=== PATIENT | male | born 1950 | race Caucasian/White ===

== ENCOUNTER 2022-08-14 16:42 | Inpatient (IN) | payer MEDICARE, SELFPAY ==
[2022-08-14 16:47] VITALS: BP 145/73; PULSE 60; RESP 16; TEMP 36.6; O2SAT 96; BMI 34.2
[2022-08-14 17:56] LABS: Bedside Glucose 199 mg/dL (74-106)
[2022-08-14] MEDS: Doxycycline 100 MG CAPSULE PO (18:49)
[2022-08-14] MEDS: Carvedilol 25 MG Tablet PO (18:49)
[2022-08-14] MEDS: Gabapentin 300 MG Capsule PO (18:49)
[2022-08-14] MEDS: Glimepiride 2 MG Tablet PO (18:49)
[2022-08-14] MEDS: Insulin NPH Human 100 UNITS/ML PEN 25 UNITS SC (18:50)
--- NOTE | 2022-08-14 19:02 | HP.PCM_ITS ---
HPI - General General Date of Admission: 08/14/22 Date of Service: 08/17/22 Chief Complaint: Here for rehab. HPI Narrative RONAK CÁRDENAS, is a 72 Male who presents with following. 08/07/2022 Pacemaker implantation for complete heart block. 08/09/2022 Admit to [facility]. 08/09/2022 Intubated for shortness of breath, acute respiratory failure with hypoxia, pulmonary edema. Started on Heparin for presumptive DVT. Empiric antibiotics for sepsis/pneumonia. Cardiology consult for elevated troponin. 08/10/2022 Extubated. 08/13/2022 Echo EF dropped from 44% to 34%. Bumex 2mg IV twice daily for acute systolic congestive heart failure. Doxycycline for H. Flu bronchitis. Sepsis ruled out. Elevated troponin managed medically. Coreg 25mg bid, Hydralazine, Amlodipine for hypertensive emergency. Acute kidney injury creatinine improved from 2.16 to 1.79, baseline 1 to 1.7. PT/OT for residential facility. 08/14/2022 Admit to TCU with debility, here for rehabilitation, strengthening, prior to discharge home with . [facility] Medical History (Updated 08/14/22 @ 19:[address] Nirav Kinsey MD) Acute bronchitis due to Hemophilus influenzae Acute kidney injury Acute respiratory failure with hypoxia Acute systolic (congestive) heart failure Carotid artery stenosis Complete heart block Coronary artery disease Debility Diabetes mellitus Fluid overload History of pacemaker Hyperlipidemia Hypertension Peripheral arterial occlusive disease Stroke Home Medications acetaminophen 650 mg tablet,extended release 1,300 mg PO Q8H FEVER/PAIN 08/14/22 [History Last Taken Unknown] amlodipine 10 mg tablet 10 mg PO DAILY BP 08/14/22 [History Last Taken Unknown] ascorbic acid (vitamin C) 1,000 mg capsule 1 g PO DAILY SUPPLEMENT 08/14/22 [History Last Taken Unknown] aspirin 81 mg tablet 81 mg PO DAILY HEART HEALTH 08/14/22 [History Last Taken Unknown] atorvastatin 40 mg tablet 40 mg PO DAILY CHOLESTEROL 08/14/22 [History Last Taken Unknown] bumetanide 1 mg tablet 1 mg PO DAILY Check with primary doctor 08/14/22 [History Last Taken Unknown] carvedilol 25 mg tablet 25 mg PO BID BP 08/14/22 [History Last Taken Unknown] cinnamon bark 500 mg capsule (Cinnamon) 2,000 mg PO DAILY SUPPLEMENT 08/14/22 [History Last Taken Unknown] clopidogrel 75 mg tablet 75 mg PO DAILY BLOOD THINNER 08/14/22 [History Last Taken Unknown] doxycycline hyclate 100 mg capsule 100 mg PO BID PRN ATB 08/14/22 [History Last Taken Unknown] empagliflozin 10 mg tablet (Jardiance) 10 mg PO DAILY DIABETES 08/14/22 [History Last Taken Unknown] gabapentin 300 mg tablet 300 mg PO TID NERVE PAIN 08/14/22 [History Last Taken Unknown] glimepiride 2 mg tablet 2 mg PO BID DIABETES 08/14/22 [History Last Taken Unknown] hydralazine 100 mg tablet 100 mg PO TID BP 08/14/22 [History Last Taken Unknown] insulin NPH isoph U-100 human 100 unit/mL (3 mL) subcutaneous pen (Humulin N NPH U-100 Insulin KwikPen) 25 unit subcut BID DIABETES 08/14/22 [History Last Taken Unknown] lactobacillus combo no.11 15 billion cell sprinkle capsule 1 cap PO DAILY PROBIOTIC 08/14/22 [History Last Taken Unknown] ipjekelc-ocm-ookyj 200 mcg-lycop 175 mcg-lutei 250 mcg-herb 178 tablet 1 tab PO DAILY VITAMIN 08/14/22 [History Last Taken Unknown] omega 5-jnk-twa-fish oil 300 mg-1,000 mg capsule (Fish Oil) 2 cap PO DAILY SUPPLEMENT 08/14/22 [History Last Taken Unknown] omeprazole 20 mg capsule,delayed release 20 mg PO DAILY REFLUX 08/14/22 [History Last Taken Unknown] Allergy/AdvReac Type Severity Reaction Status Date / Time Iodinated Contrast Media Allergy Hives Verified 08/14/22 17:24 azithromycin AdvReac Nausea Verified 08/14/22 17:24 cilostazol AdvReac Chest Verified 08/14/22 17:24 tightness Surgical History (Updated 08/14/22 @ 19:[address] Nirav Kinsey MD) History of appendectomy History of heart artery stent History of toe surgery Social History (Updated 08/14/22 @ 19:[address] Nirav Kinsey MD) household members: spouse Smoking Status: Current every day smoker tobacco type: cigars alcohol intake: never substance use type: does not use ROS Constitutional Constitutional: Denies chills, fever(s) or weight gain ENT HEENT: Denies headache(s), nasal congestion or nasal discharge Cardiovascular Cardiovascular: Denies chest pain or palpitations Respiratory/Chest Respiratory/Chest: Denies cough, excessive phlegm production or shortness of breath with exertion Gastrointestinal Gastrointestinal: Denies abdominal pain, nausea or vomiting Genitourinary Genitourinary: Denies dysuria Musculoskeletal Musculoskeletal: Denies joint pain or joint swelling Integumentary Integumentary: Denies rash or wounds Neurologic Neurologic: Denies focal weakness, numbness or tingling Psychiatric Psychiatric: Denies anxiety, auditory hallucinations, depression, homicidal i deation or suicidal ideation Vital Signs Vital Signs Vital Signs: 08/14/22 16:47 Temperature 97.9 F Temperature Source Temporal Pulse Rate 60 Respiratory Rate 16 Blood Pressure 145/73 H Blood Pressure Mean 97 Blood Pressure Source Monitor Blood Pressure Position Sitting Blood Pressure Location Right Arm Pulse Ox 96 Oxygen Delivery Method Room Air Weight Weight: 117.934 kg Body Mass Index (BMI) 34.2 Physical Exam Const alert General Appearance: cooperative HEENT normocephalic Eyes PERRL and EOMs intact bilaterally Neck supple, no JVD and no carotid bruits Resp normal respiratory effort, normal air movement and clear to auscultation bilaterally Cardio regular rate and regular rhythm GI normal to inspection, nondistended, normoactive bowel sounds, non-tender and non-distended Extremity normal capillary refill General Extremity: Negative for edema Skin no rashes or lesions noted General Skin Exam: no breakdown Psych affect normal Appearance: appropriate Results Lab / Micro Data Result Diagrams: 08/15/22 07:02 08/17/22 05:25 Labs: Laboratory Results - last 24 hr 08/14/22 17:38: POC Glucose 199 H Micro: Microbiology 08/14/22 17:35 Nasal Secretion SARS-CoV-2 Antigen (Rapid) - Final Assessment & Plan Assessment/Plan (1) Debility: (2) Acute respiratory failure with hypoxia: (3) Acute kidney injury: (4) Fluid overload: (5) Acute systolic (congestive) heart failure: (6) Acute bronchitis due to Hemophilus influenzae: (7) Coronary artery disease: (8) Diabetes mellitus: (9) Hypertension: (10) Hyperlipidemia: (11) Peripheral arterial occlusive disease: (12) Complete heart block: (13) Stroke: (14) Carotid artery stenosis: PLAN: Plan 72 year old male with below past medical history hospitalized for acute respiratory failure requiring intubation secondary to acute systolic congestive heart failure, Hemophilus influenza bronchitis, complicated by acute kidney injury, admitted to TCU with debility, here for rehabilitation, strengthening, prior to discharge home with . * Debility - PT/OT. * Pain - Tylenol 1000mg q6h prn pain (1-10). * Bowel - senna/colace 1 tablet bid, MOM 30ml daily prn. * Adult immunization - Administer pneumonia vaccine, covid19 vaccine, flu vaccine as appropriate. * DVT prophylaxis - Hold, on dual antiplatelet therapy. * Hypertension - Coreg 25mg bid, Hydralazine 100mg tid, Amlodipine 10mg daily. * Vitamin C deficiency - Vitamin C 1000mg daily. * Coronary Artery Disease - Coreg 25mg bid, Plavix 75mg daily, Aspirin 81mg daily. * Stroke - Plavix 75mg daily, Aspirin 81mg daily. * Hyperlipidemia - Atorvastatin 40mg qhs, Melvin 3 1 gm daily. * Heart failure with reduced ejection fraction (EF 34%), Coreg 25mg bid, Hydralazine 100mg tid, Jardiance 10mg daily, Bumex 1mg daily. * H. Flu bronchitis - Doxycycline 100mg bid thru 08/19/2022, Lactobacillus 1 tablet daily thru 08/19/2022. * Diabetes Mellitus II - Glimepiride 2mg bidcm, NPH 25 units bid, Jardiance 10mg daily. * Diabetic polyneuropathy - Gabapentin 300mg tidcm. * Nutrition - MVI daily. * GERD - Pantoprazole 20mg daily.
[2022-08-14 21:35] VITALS: PULSE 60; RESP 16; O2SAT 94
[2022-08-14 21:36] VITALS: BP 129/67; PULSE 60
[2022-08-14] MEDS: Atorvastatin Calcium 40 MG Tablet PO (21:36)
[2022-08-14] MEDS: Senna/Docusate Sodium 1 Tablet PO (21:36)
[2022-08-14] MEDS: hydrALAZINE 50 MG Tablet 100 MG PO (21:36)
[2022-08-14 22:00] LABS: Bedside Glucose 267 mg/dL (74-106)
[2022-08-15 06:31] LABS: Bedside Glucose 203 mg/dL (74-106)
[2022-08-15] MEDS: Bumetanide 0.5 MG Tablet 1 MG PO (06:37)
[2022-08-15] MEDS: Empagliflozin 10 MG Tablet PO (06:38)
[2022-08-15] MEDS: Doxycycline 100 MG CAPSULE PO ×2 (06:38→17:44)
[2022-08-15] MEDS: Carvedilol 25 MG Tablet PO ×2 (06:38→17:44)
[2022-08-15] MEDS: Omega-3 Acid Ethyl Esters 1 GM Capsule PO (06:38)
[2022-08-15] MEDS: Pantoprazole Sodium 20 MG Tablet PO (06:38)
[2022-08-15] MEDS: amLODIPine 10 MG Tablet PO (06:38)
[2022-08-15 06:39] VITALS: BP 150/60; PULSE 59
[2022-08-15] MEDS: hydrALAZINE 50 MG Tablet 100 MG PO ×3 (06:39→20:12)
[2022-08-15] MEDS: Ascorbic Acid 500 MG Tablet 1000 MG PO (06:39)
[2022-08-15] MEDS: Senna/Docusate Sodium 1 Tablet PO ×2 (06:40→17:44)
[2022-08-15] MEDS: Clopidogrel Bisulfate 75 MG Tablet PO (06:40)
[2022-08-15 06:48] VITALS: RESP 16; TEMP 36.7; O2SAT 95
[2022-08-15 07:13] LABS: Absolute Neutrophil Count 5.1 X10^3/uL (2.0-7.7); Basophil# 0.04 X10^3/uL; Basophil% 0.6 % (0-1); Eosinophils% 5.6 % (0-5); Hemoglobin 9.5 g/dL (13.0-16.5); Lymphocyte % 8.5 % (19-41); Mean Corp Hgb Conc 32.8 g/dL (32-36); Mean Corpuscular Hgb 30.2 pg (27.0-32.0); Mean Corpuscular Volume 92.1 fL (80-94); Mean Platelet Vol. 9.2 fl (6.2-12.0); Monocyte# 0.87 X10^3/uL; Monocyte% 12.3 % (0-10); NRBC Flagged by Analyzer 0 % (0-5); Neutrophil # 5.07 X10^3/uL (2.7-7.7); Neutrophil % 71.6 % (47-70); POSITIVE DIFFERENTIAL YES; Platelet Count 218 K/mm3 (150-450); RBC Distribution Width CV 13.2 % (11.6-14.6); RBC Distribution Width SD 44.1 fl (35.1-43.9); Red Blood Count 3.15 M/mm3 (4.6-6.2); White Blood Count 7.1 K/mm3 (4.4-11.0)
[2022-08-15 07:29] LABS: Differential Indicated SCAN CRITERIA MET
[2022-08-15 07:56] LABS: Anion Gap 8 (5-15); BUN 61 mg/dL (7-18); BUN/Creat Ratio 36.1 RATIO (10-20); Calcium,Total 9.1 mg/dL (8.5-10.1); Chloride 104 mmol/L (98-107); Creatinine, Serum 1.69 mg/dL (0.70-1.30); EST Glomerular Filtration Rate 43 mL/min (>60); Est Glom Filt Rate - Afr Amer 52 mL/min (>60); Estimated Creatinine Clearance 44.65 ml/min; Glucose 223 mg/dL (74-106); Potassium 3.4 mmol/L (3.5-5.1); Sodium Level 138 mmol/L (136-145)
[2022-08-15] MEDS: Gabapentin 300 MG Capsule PO ×3 (08:16→17:43)
[2022-08-15] MEDS: Glimepiride 2 MG Tablet PO ×2 (08:17→17:43)
[2022-08-15] MEDS: Multivitamins,Ther W-Minerals Tablet 1 TABLET PO (08:17)
[2022-08-15] MEDS: Aspirin 81 MG TAB.CHEW PO (08:17)
[2022-08-15] MEDS: Insulin NPH Human 100 UNITS/ML PEN 25 UNITS SC ×2 (08:20→17:45)
[2022-08-15] MEDS: Tuberculin,Purif.prot.deriv. 50 TU/ML Vial 0.1 ML ID (10:51)
[2022-08-15 11:35] LABS: Bedside Glucose 237 mg/dL (74-106)
[2022-08-15] MEDS: Potassium Chloride Oral Tablet 20 MEQ PO (12:44)
[2022-08-15 14:14] VITALS: BP 130/63; PULSE 59
[2022-08-15 16:46] LABS: Bedside Glucose 257 mg/dL (74-106)
[2022-08-15 17:41] VITALS: BP 132/69; PULSE 60
[2022-08-15 20:12] VITALS: BP 149/74; PULSE 60
[2022-08-15] MEDS: Menthol/Lanolin/Calamine/Znox 113 GM Tube 1 APPLIC TOPICAL (20:12)
[2022-08-15] MEDS: Nystatin Powder 15gm Bottle 1 APPLIC TOPICAL (20:12)
[2022-08-15] MEDS: Atorvastatin Calcium 40 MG Tablet PO (20:14)
[2022-08-15 20:17] VITALS: PULSE 60
[2022-08-15 21:45] LABS: Bedside Glucose 217 mg/dL (74-106)
[2022-08-16 05:44] VITALS: BP 136/61; PULSE 60; RESP 18
[2022-08-16 05:53] VITALS: BP 136/61; PULSE 60
[2022-08-16] MEDS: hydrALAZINE 50 MG Tablet 100 MG PO ×3 (05:53→22:29)
[2022-08-16] MEDS: Empagliflozin 10 MG Tablet PO (05:54)
[2022-08-16] MEDS: Bumetanide 0.5 MG Tablet 1 MG PO (05:54)
[2022-08-16] MEDS: Clopidogrel Bisulfate 75 MG Tablet PO (05:54)
[2022-08-16] MEDS: Pantoprazole Sodium 20 MG Tablet PO (05:58)
[2022-08-16] MEDS: Carvedilol 25 MG Tablet PO ×2 (05:58→17:44)
[2022-08-16] MEDS: Doxycycline 100 MG CAPSULE PO ×2 (05:58→17:43)
[2022-08-16] MEDS: Omega-3 Acid Ethyl Esters 1 GM Capsule PO (05:59)
[2022-08-16] MEDS: amLODIPine 10 MG Tablet PO (05:59)
[2022-08-16] MEDS: Menthol/Lanolin/Calamine/Znox 113 GM Tube 1 APPLIC TOPICAL ×2 (06:00→17:43)
[2022-08-16] MEDS: Nystatin Powder 15gm Bottle 1 APPLIC TOPICAL ×2 (06:00→17:44)
[2022-08-16] MEDS: Ascorbic Acid 500 MG Tablet 1000 MG PO (06:04)
[2022-08-16] MEDS: Insulin NPH Human 100 UNITS/ML PEN 25 UNITS SC (06:10)
[2022-08-16 06:31] LABS: Bedside Glucose 220 mg/dL (74-106)
[2022-08-16] MEDS: Multivitamins,Ther W-Minerals Tablet 1 TABLET PO (08:23)
[2022-08-16] MEDS: Aspirin 81 MG TAB.CHEW PO (08:24)
[2022-08-16] MEDS: Potassium Chloride Oral Tablet 20 MEQ PO (08:27)
[2022-08-16] MEDS: Gabapentin 300 MG Capsule PO ×3 (08:27→17:54)
[2022-08-16] MEDS: Glimepiride 2 MG Tablet PO ×2 (08:28→17:43)
[2022-08-16 11:25] LABS: Bedside Glucose 274 mg/dL (74-106)
[2022-08-16 13:37] VITALS: BP 136/61; PULSE 60
[2022-08-16] MEDS: Acetaminophen 500 MG Tablet 1000 MG PO (13:37)
[2022-08-16 17:32] VITALS: BP 143/71; PULSE 60; RESP 15; TEMP 37; O2SAT 94
[2022-08-16 17:45] LABS: Bedside Glucose 280 mg/dL (74-106)
[2022-08-16] MEDS: Insulin Lispro 100 UNIT/ML INSULN.PEN 10 UNIT SC (17:56)
[2022-08-16 21:26] LABS: Bedside Glucose 292 mg/dL (74-106)
[2022-08-16 22:29] VITALS: BP 143/71; PULSE 60
[2022-08-16] MEDS: Atorvastatin Calcium 40 MG Tablet PO (22:29)
[2022-08-16] MEDS: Insulin Glargine-YFGN 100 UNIT/ML Pen 50 UNIT SC (22:29)
[2022-08-17] MEDS: Pantoprazole Sodium 20 MG Tablet PO (06:02)
[2022-08-17] MEDS: Ascorbic Acid 500 MG Tablet 1000 MG PO (06:02)
[2022-08-17] MEDS: Doxycycline 100 MG CAPSULE PO ×2 (06:02→17:45)
[2022-08-17] MEDS: Bumetanide 0.5 MG Tablet 1 MG PO (06:04)
[2022-08-17] MEDS: Clopidogrel Bisulfate 75 MG Tablet PO (06:04)
[2022-08-17 06:05] VITALS: BP 159/69; PULSE 59
[2022-08-17] MEDS: Omega-3 Acid Ethyl Esters 1 GM Capsule PO (06:05)
[2022-08-17] MEDS: Menthol/Lanolin/Calamine/Znox 113 GM Tube 1 APPLIC TOPICAL ×2 (06:05→17:46)
[2022-08-17] MEDS: hydrALAZINE 50 MG Tablet 100 MG PO ×3 (06:05→21:19)
[2022-08-17] MEDS: Nystatin Powder 15gm Bottle 1 APPLIC TOPICAL ×2 (06:06→17:46)
[2022-08-17] MEDS: Empagliflozin 10 MG Tablet PO (06:06)
[2022-08-17] MEDS: amLODIPine 10 MG Tablet PO (06:06)
[2022-08-17 06:07] LABS: Anion Gap 10 (5-15); BUN 67 mg/dL (7-18); BUN/Creat Ratio 42.7 RATIO (10-20); Calcium,Total 8.7 mg/dL (8.5-10.1); Chloride 104 mmol/L (98-107); Creatinine, Serum 1.57 mg/dL (0.70-1.30); EST Glomerular Filtration Rate 46 mL/min (>60); Est Glom Filt Rate - Afr Amer 56 mL/min (>60); Estimated Creatinine Clearance 48.06 ml/min; Glucose 180 mg/dL (74-106); Potassium 3.6 mmol/L (3.5-5.1); Sodium Level 139 mmol/L (136-145)
[2022-08-17 06:40] LABS: Bedside Glucose 198 mg/dL (74-106)
[2022-08-17] MEDS: Insulin Lispro 100 UNIT/ML INSULN.PEN 10 UNIT SC ×3 (08:03→17:43)
[2022-08-17] MEDS: Glimepiride 2 MG Tablet PO ×2 (08:04→17:44)
[2022-08-17] MEDS: Aspirin 81 MG TAB.CHEW PO (08:04)
[2022-08-17] MEDS: Gabapentin 300 MG Capsule PO ×3 (08:04→17:44)
[2022-08-17] MEDS: Potassium Chloride Oral Tablet 20 MEQ PO (08:05)
[2022-08-17] MEDS: Multivitamins,Ther W-Minerals Tablet 1 TABLET PO (08:05)
[2022-08-17] MEDS: Carvedilol 25 MG Tablet PO ×2 (08:05→17:44)
--- NOTE | 2022-08-17 11:19 | NURSING ---
Resident educated on the COVID 19 Vaccine and he does not want to receive it.
--- NOTE | 2022-08-17 11:25 | NURSING ---
Discussed code status with pt and the differences in options. Pt confirms he wants to be a full code. Updated in chart.
--- NOTE | 2022-08-17 11:28 | CASEMGMT ---
Social Work Met with patient to complete initial assessment. Introduced self and role. Verified contacts. Discussed code status and MOLST form. Pt confirmed full code. MOLST placed in Dr. ray. Pt has advanced directives, and agreed to tell son to bring in a copy. Educated to [facility] insurance with [employer] 08/17 and continued stay is not guaranteed with each review. Pts goal is to return home alone at [facility]. pt does live in son's house in[address]. Son and DIL both work handle attacher. SW to continue to follow. Tosin Valiente, CLIENT EXPERIENCE CONSULTANT TEXTILE PIN WORKER
[2022-08-17 11:45] LABS: Bedside Glucose 197 mg/dL (74-106)
--- NOTE | 2022-08-17 11:58 | NURSING ---
Environmental Engineering Aide Note; Activity Asset: Complete
[2022-08-17 12:52] VITALS: BP 129/69; PULSE 61
--- NOTE | 2022-08-17 14:44 | PHA.CONS_ITS ---
TCU RX Drug Regimen Review Subjective: TCU Admission. 72 YOM presented for pacemaker implantation, then 2 days later was hospitalized for acute respiratory failure requiring intubation secondary to acute systolic congestive heart failure, Heamophilus influenza bronchitis, complicated by acute kidney injury. Admitted to TCU with debility for strengthening and rehabilitation. Objective: Allergies Iodinated Contrast Media Allergy (Verified 08/14/22 17:24) Hives azithromycin Adverse Reaction (Verified 08/14/22 17:24) Nausea cilostazol Adverse Reaction (Verified 08/14/22 17:24) Chest tightness Current Medications Generic Name Dose Route Start Last Admin Trade Name Freq PRN Reason Stop Dose Admin Acetaminophen 1,000 mg 08/14/22 18:25 08/16/22 13:37 Acetaminophen 500 Mg Tablet PO 1,000 mg Q6H PRN PRN Administration Pain 1-10 or Fever Amlodipine Besylate 10 mg 08/15/22 06:00 08/17/22 06:06 Amlodipine 10 Mg Tablet PO 10 mg DAILY YASIR Administration Ascorbic Acid 1,000 mg 08/15/22 06:00 08/17/22 06:02 Ascorbic Acid 500 Mg Tablet PO 1,000 mg DAILY YASIR Administration Aspirin 81 mg 08/15/22 08:00 08/17/22 08:04 Aspirin 81 Mg Tab.Chew PO 81 mg BREAKFAST YASIR Administration Atorvastatin Calcium 40 mg 08/14/22 22:00 08/16/22 22:29 Atorvastatin Calcium 40 Mg Tablet PO 40 mg QHS YASIR Administration Bumetanide 1 mg 08/15/22 06:00 08/17/22 06:04 Bumetanide 0.5 Mg Tablet PO 1 mg DAILY YASIR Administration Calamine/Phenol 1 applic 08/15/22 06:00 08/17/22 06:05 Menthol/Lanolin/Calamine/Znox 113 Gm Tube TOPICAL 1 applic BID YASIR Administration Protocol Carvedilol 25 mg 08/17/22 08:00 08/17/22 08:05 Carvedilol 25 Mg Tablet PO 25 mg BIDCM YASIR Administration Clopidogrel Bisulfate 75 mg 08/15/22 06:00 08/17/22 06:04 Clopidogrel Bisulfate 75 Mg Tablet PO 75 mg DAILY YASIR Administration Doxycycline Monohydrate 100 mg 08/14/22 18:00 08/17/22 06:02 Doxycycline 100 Mg Capsule PO 08/19/22 18:01 100 mg BID YASIR Administration Empagliflozin 10 mg 08/15/22 06:00 08/17/22 06:06 Empagliflozin 10 Mg Tablet PO 10 mg DAILY YASIR Administration Gabapentin 300 mg 08/14/22 17:45 08/17/22 12:52 Gabapentin 300 Mg Capsule PO 300 mg TIDCM YASIR Administration Glimepiride 2 mg 08/14/22 18:00 08/17/22 08:04 Glimepiride 2 Mg Tablet PO 2 mg BIDCM YASIR Administration Hydralazine HCl 100 mg 08/14/22 22:00 08/17/22 12:52 Hydralazine 50 Mg Tablet PO 100 mg TID YASIR Administration Insulin Glargine 50 unit 08/16/22 22:00 08/16/22 22:29 Insulin Glargine-Yfgn 100 Unit/Ml Pen SC 50 unit QHS YASIR Administration Insulin Human Lispro 10 unit 08/16/22 16:45 08/17/22 12:50 Insulin Lispro 100 Unit/Ml Insuln.Pen SC 10 units TIDAC YASIR Administration Lactobacillus Acidophilus 1 tablet 08/15/22 06:00 08/17/22 06:04 Lactobacillus Acidophilus PO 08/19/22 23:59 1 tablet DAILY YASIR Administration Magnesium Hydroxide 30 ml 08/14/22 19:20 Magnesium Hydroxide 30 Ml Udc PO DAILY PRN Constipation Multivitamins/Minerals 1 tablet 08/15/22 08:00 08/17/22 08:05 Multivitamins,Ther W-Minerals Tablet PO 1 tablet BREAKFAST YASIR Administration Nystatin 1 applic 08/15/22 06:00 08/17/22 06:06 Nystatin Powder 15gm Bottle TOPICAL 1 applic BID YASIR Administration Protocol [id number] Ethyl Esters 1 gm 08/15/22 06:00 08/17/22 06:05 [place]-3 Acid Ethyl Esters 1 Gm Capsule PO 1 gm DAILY YASIR Administration Pantoprazole Sodium 20 mg 08/15/22 06:00 08/17/22 06:02 Pantoprazole Sodium 20 Mg Tablet PO 20 mg DAILY YASIR Administration Potassium Chloride 20 meq 08/16/22 08:00 08/17/22 08:05 Potassium Chloride Oral Tablet 20 Meq PO 20 meq DAILYCM YASIR Administration Senna/Docusate Sodium 1 tablet 08/14/22 19:30 08/17/22 06:03 Senna/Docusate Sodium 1 Tablet PO Not Given BID [facility] Sodium Chloride 10 - 40 ml 08/14/22 16:50 0.9% Saline Lock 10 Ml Syringe IV UD PRN SALINE FLUSH Tuberculin PPD 0.1 ml 08/22/22 10:00 Tuberculin,Purif.Prot.Deriv. 50 Tu/Ml Vial ID 08/22/22 10:01 X1 ONE Problem List (Last Updated 08/14/22 @ 19:[address] Nirav Kinsey MD) Debility (Acute) Stroke (Acute) Carotid artery stenosis (Acute) Peripheral arterial occlusive disease (Acute) Hyperlipidemia (Acute) Hypertension (Chronic) Diabetes mellitus (Acute) Complete heart block (Acute) Coronary artery disease (Acute) Acute bronchitis due to Hemophilus influenzae (Acute) Acute systolic (congestive) heart failure (Acute) Fluid overload (Acute) Acute kidney injury (Acute) Acute respiratory failure with hypoxia (Acute) Vital Signs Temp Pulse Resp BP Pulse Ox O2 Del Method 98.6 F 61 15 129/69 H 94 Room Air 08/16/22 17:32 08/17/22 12:52 08/16/22 17:32 08/17/22 12:52 08/16/22 17:32 08/17/22 09:31 Oxygen Delivery Method Room Air Weight: 117.934 kg Body Mass Index (BMI) 34.2 Sodium 139 mmol/L (136-145) 08/17/22 05:25 Potassium 3.6 mmol/L (3.5-5.1) 08/17/22 05:25 Chloride 104 mmol/L (98-107) 08/17/22 05:25 Carbon Dioxide 25.0 mmol/L (21.0-32.0) 08/17/22 05:25 Anion Gap 10 (5-15) 08/17/22 05:25 BUN 67 mg/dL (7-18) H 08/17/22 05:25 Creatinine 1.57 mg/dL (0.70-1.30) H 08/17/22 05:25 Est GFR (MDRD) Af Amer 56 mL/min (>60) L 08/17/22 05:25 Est GFR (MDRD) Non-Af 46 mL/min (>60) L 08/17/22 05:25 BUN/Creatinine Ratio 42.7 RATIO (10-20) H 08/17/22 05:25 Glucose 180 mg/dL (74-106) H 08/17/22 05:25 Assessment/Plan: 1. Pain: acetaminophen?1000 mg?PO Q6H PRN pain score (1-10). Last dose 08/16/22 for a headache, pain score 4/10. Please continue to?monitor?increased pain and PRN use.?? 2. Bowel: senna/docusate 1 tablet PO BID and MOM 30 mL PO daily PRN constipation.?Patient has refused 3/6 scheduled doses of senna/docusate and no documentation of PRN use. Please consider changing senna/docusate to PRN c onstipation. Thanks. Last documented bowel movement 08/17/2022. Please continue?to?monitor?for constipation and PRN use.?? 3. H. Flu bronchitis: doxycycline?100 mg?PO BID through 08/19/22 and lactoba cillus 1 tablet daily through 08/19/2022.?Please continue to?monitor?for diarrhea and S/S of infection.? 4. Stroke: clopidogrel 75 mg PO daily and aspirin?81 mg?PO daily. Please continue to?monitor?hemoglobin (9.5 g/dL), platelets (218 K/mm3), LFT, and signs/symptoms of a blood clot/bleed.??? 5. CAD/Hypertension/Hyperlipidemia/CHF:?carvedilol?25 mg?PO BID, hydralazine?100 mg?PO TID, empagliflozin 10mg Po daily, bumetanide 1mg PO daily, amlodipine?10 mg?PO daily, clopidogrel 75 mg PO daily, aspirin?81 mg?PO daily, atorvastatin?40 mg?PO QHS, and omega 3?1-gram?PO daily. Resident does not have a lipid panel or LFT's on file. Please consider ordering lipid panel and LFTs if clinically appropriate. Thanks.?Please continue to?monitor?BP (last 129/69 mmHg), HR (61 bpm), ejection fraction (last echo?08/13 at 34%), potassium (last 3.6mmol/L), sodium (last 139mmol/L), swelling of extremities, S/S of bleeding, hemoglobin,?renal function, and muscle pain. 6. Diabetes Mellitus II: glimepiride 2 mg PO BID with meals,?insulin glargine?50-units?SubQ?QHS,?insulin lispro 10 units?SubQ?TIDAC,?and Jardiance?10 mg?PO daily.?Please continue to?monitor?blood glucose (last 197mg/dL), renal function, weight,?GI side effects and S/S of hyper/hypoglycemia. Glimepiride is a BEERS criteria agent for hypoglycemia. There is no hemoglobin A1c on file. Please consider ordering one now and then every 3 months if clinically appropriate. Thanks.? 7. GERD: pantoprazole?20 mg?PO daily.?Please continue to monitor LFT, magnesium?(no documented history), diarrhea (BEERS for increased risk of C. diff infections) and symptoms of acid?reflux.?? 8. Hypokalemia/vitamin C deficiency/nutrition:?potassium chloride 20?mEq PO daily with meals, vitamin C?1000mg?daily and multivitamin with minerals 1T PO daily.?Please continue to?monitor?potassium (last 3.6 mmol/L).? Assessment/Plan for indications treated with psychotropic medications: 1. Diabetic polyneuropathy: gabapentin?300mg?PO TID with meals. Please continue to?monitor?for?S/S?of confusion, renal function?(BEERS medication, dose appropriately for renal function), falls/fractures (BEERS). GDR?not?appropriate due?to?use?for neuropathy. Medical chart and medication regimen reviewed. The following medication irregularities or issues were identified: *1. Senna/docusate 1 tablet PO BID and MOM 30 mL PO daily PRN constipation.?Patient has refused 3/6 scheduled doses of senna/docusate. Please consider changing senna/docusate to PRN constipation. Thanks. *2. Atorvastatin?40 mg?PO QHS and omega 3?1-gram?PO daily. Resident does not have a lipid panel or LFT's on file. Please consider ordering lipid panel and LFTs if clinically appropriate. Thanks. *3. Glimepiride 2 mg PO BID with meals,?insulin glargine?50- units?SubQ?QHS,?insulin lispro 10 units?SubQ?TIDAC,?and Jardiance?10 mg?PO daily. There is no hemoglobin A1c on file. Please consider ordering one now and then every 3 months if clinically appropriate. Thanks.? 72 year old male with below past medical history hospitalized for acute respiratory failure requiring intubation secondary to acute systolic congestive heart failure, Hemophilus influenza bronchitis, complicated by acute kidney injury, admitted to TCU with debility, here for rehabilitation, strengthening, prior to discharge home with . * Debility - PT/OT. * Pain - Tylenol 1000mg q6h prn pain (1-10). * Bowel - senna/colace 1 tablet bid, MOM 30ml daily prn. * Adult immunization - Administer pneumonia vaccine, covid19 vaccine, flu vaccine as appropriate. * DVT prophylaxis - Hold, on dual antiplatelet therapy. * Hypertension - Coreg 25mg bid, Hydralazine 100mg tid, Amlodipine 10mg daily. * Vitamin C deficiency - Vitamin C 1000mg daily. * Coronary Artery Disease - Coreg 25mg bid, Plavix 75mg daily, Aspirin 81mg daily. * Stroke - Plavix 75mg daily, Aspirin 81mg daily. * Hyperlipidemia - Atorvastatin 40mg qhs, [place] 3 1 gm daily. * Heart failure with reduced ejection fraction (EF 34%), Coreg 25mg bid, Hydralazine 100mg tid, Jardiance 10mg daily, Bumex 1mg daily. * H. Flu bronchitis - Doxycycline 100mg bid thru 08/19/2022, Lactobacillus 1 tablet daily thru 08/19/2022. * Diabetes Mellitus II - Glimepiride 2mg bidcm, NPH 25 units bid, Jardiance 10mg daily. * Diabetic polyneuropathy - Gabapentin 300mg tidcm. * Nutrition - MVI daily. * GERD - Pantoprazole 20mg daily. Date of Note:: 08/17/22
[2022-08-17 21:19] VITALS: BP 145/72; PULSE 60
[2022-08-17] MEDS: Atorvastatin Calcium 40 MG Tablet PO (21:20)
[2022-08-17] MEDS: Insulin Glargine-YFGN 100 UNIT/ML Pen 50 UNIT SC (21:21)
[2022-08-17 21:25] LABS: Bedside Glucose 212 mg/dL (74-106)
[2022-08-17 23:08] VITALS: BP 140/73; PULSE 64; RESP 18; TEMP 37.2; O2SAT 94
[2022-08-18] VITALS (7 sets, daily range): BP systolic 118–138; BP diastolic 64–72; PULSE 60–66; RESP 16–18; TEMP 36.7; O2SAT 90–96
[2022-08-18] MEDS: Clopidogrel Bisulfate 75 MG Tablet PO (05:30)
[2022-08-18] MEDS: Bumetanide 0.5 MG Tablet 1 MG PO (05:30)
[2022-08-18] MEDS: Doxycycline 100 MG CAPSULE PO ×2 (05:30→16:57)
[2022-08-18] MEDS: Senna/Docusate Sodium 1 Tablet PO (05:31)
[2022-08-18] MEDS: Omega-3 Acid Ethyl Esters 1 GM Capsule PO (05:31)
[2022-08-18] MEDS: hydrALAZINE 50 MG Tablet 100 MG PO ×3 (05:31→21:49)
[2022-08-18] MEDS: Pantoprazole Sodium 20 MG Tablet PO (05:31)
[2022-08-18] MEDS: amLODIPine 10 MG Tablet PO (05:31)
[2022-08-18] MEDS: Ascorbic Acid 500 MG Tablet 1000 MG PO (05:31)
[2022-08-18] MEDS: Nystatin Powder 15gm Bottle 1 APPLIC TOPICAL ×2 (05:31→16:58)
[2022-08-18] MEDS: Menthol/Lanolin/Calamine/Znox 113 GM Tube 1 APPLIC TOPICAL ×2 (05:31→16:58)
[2022-08-18 07:36] LABS: Bedside Glucose 162 mg/dL (74-106)
[2022-08-18] MEDS: Gabapentin 300 MG Capsule PO ×3 (08:40→16:59)
[2022-08-18] MEDS: Insulin Lispro 100 UNIT/ML INSULN.PEN 10 UNIT SC ×3 (08:40→17:53)
[2022-08-18] MEDS: Multivitamins,Ther W-Minerals Tablet 1 TABLET PO (08:41)
[2022-08-18] MEDS: Glimepiride 2 MG Tablet PO ×2 (08:41→16:57)
[2022-08-18] MEDS: Carvedilol 25 MG Tablet PO ×2 (08:41→16:57)
[2022-08-18] MEDS: Empagliflozin 10 MG Tablet PO (08:41)
[2022-08-18] MEDS: Aspirin 81 MG TAB.CHEW PO (08:41)
[2022-08-18] MEDS: Potassium Chloride Oral Tablet 20 MEQ PO (08:41)
[2022-08-18 11:40] LABS: Bedside Glucose 139 mg/dL (74-106)
--- NOTE | 2022-08-18 12:38 | CASEMGMT ---
Addendum entered by Tosin Valiente 08/18/22 14:15: Pt received prior FWW in 2017 and is not eligible for a new walker. Updated pt and [employer]. Original Note: Social Work Pt and family requesting discharge 08/19. This worker collaborated with IDT and pt is doing well, but recommending supervision at home with continued therapy. family participated in therapy session today and are comfortable with DC. HEP provided to family. SW spoke with pt and family in room. Confirmed DC 08/19 home with family support. Pt agreeable to [facility] PT/OT/SN. First choice is [facility], whom pt used prior, then [facility]. Pt requesting wide FWW. Referral made to [employer] via [facility]. Family to transport at 1000. Plan: DC home with family support 08/19, [facility] PT/OT/SN, wide FWW Tosin Valiente ,STAFF [employer] OFFICER ONLINE MARKETING MANAGER
[2022-08-18 16:40] LABS: Bedside Glucose 209 mg/dL (74-106)
--- NOTE | 2022-08-18 19:25 | NURSING ---
work release papers signed by dr johnson given to pt for his son and daughter in law
--- NOTE | 2022-08-18 19:27 | PCM.DC.SUM ---
Providers Date of Admission: 08/14/22 Primary Care Physician: Dr. Richard Jones MD Reason For Visit: ACUTE RESP FAILURE Diagnosis Discharge Diagnosis (1) Debility: Status: Acute Code(s): R53.81 - Other malaise (2) Acute respiratory failure with hypoxia: Status: Acute Code(s): J96.01 - Acute respiratory failure with hypoxia (3) Acute kidney injury: Status: Acute Code(s): N17.9 - Acute kidney failure, unspecified (4) Fluid overload: Status: Acute Code(s): E87.70 - Fluid overload, unspecified (5) Acute systolic (congestive) heart failure: Status: Acute Code(s): I50.21 - Acute systolic (congestive) heart failure (6) Acute bronchitis due to Hemophilus influenzae: Status: Acute Code(s): J20.1 - Acute bronchitis due to Hemophilus influenzae (7) Coronary artery disease: Status: Acute Code(s): I25.10 - Atherosclerotic heart disease of [place] coronary artery without angina pectoris (8) Diabetes mellitus: Status: Acute Code(s): E11.9 - Type 2 diabetes mellitus without complications (9) Hypertension: Status: Chronic Code(s): I10 - Essential (primary) hypertension (10) Hyperlipidemia: Status: Acute Code(s): E78.5 - Hyperlipidemia, unspecified (11) Peripheral arterial occlusive disease: Status: Acute Code(s): I77.9 - Disorder of arteries and arterioles, unspecified (12) Complete heart block: Status: Acute Code(s): I44.2 - Atrioventricular block, complete (13) Stroke: Status: Acute Code(s): I63.9 - Cerebral infarction, unspecified (14) Carotid artery stenosis: Status: Acute Code(s): I65.29 - Occlusion and stenosis of unspecified carotid artery Plan 72 year old male with below past medical history hospitalized for acute respiratory failure requiring intubation secondary to acute systolic congestive heart failure, Hemophilus influenza bronchitis, complicated by acute kidney injury, admitted to TCU with debility, here for rehabilitation, strengthening, prior to discharge home with . Debility - PT/OT. Pain - Tylenol 1000mg q6h prn pain (1-10). Bowel - senna/colace 1 tablet bid, MOM 30ml daily prn. Adult immunization - Administer pneumonia vaccine, covid19 vaccine, flu vaccine as appropriate. DVT prophylaxis - Hold, on dual antiplatelet therapy. Hypertension - Coreg 25mg bid, Hydralazine 100mg tid, Amlodipine 10mg daily. Vitamin C deficiency - Vitamin C 1000mg daily. Coronary Artery Disease - Coreg 25mg bid, Plavix 75mg daily, Aspirin 81mg daily. Stroke - Plavix 75mg daily, Aspirin 81mg daily. Hyperlipidemia - Atorvastatin 40mg qhs, [place] 3 1 gm daily. Heart failure with reduced ejection fraction (EF 34%), Coreg 25mg bid, Hydralazine 100mg tid, Jardiance 10mg daily, Bumex 1mg daily. H. Flu bronchitis - Doxycycline 100mg bid thru 08/19/2022, Lactobacillus 1 tablet daily thru 08/19/2022. Diabetes Mellitus II - Glimepiride 2mg bidcm, NPH 25 units bid, Jardiance 10mg daily. Diabetic polyneuropathy - Gabapentin 300mg tidcm. Nutrition - MVI daily. GERD - Pantoprazole 20mg daily. Medications at Discharge Home Medications acetaminophen 650 mg tablet,extended release 1,300 mg PO Q8H FEVER/PAIN 08/14/22 amlodipine 10 mg tablet 10 mg PO DAILY BP 08/14/22 ascorbic acid (vitamin C) 1,000 mg capsule 1 g PO DAILY SUPPLEMENT 08/14/22 aspirin 81 mg tablet 81 mg PO DAILY HEART HEALTH 08/14/22 atorvastatin 40 mg tablet 40 mg PO DAILY CHOLESTEROL 08/14/22 bumetanide 1 mg tablet 1 mg PO DAILY Check with primary doctor 08/14/22 carvedilol 25 mg tablet 25 mg PO BID BP 08/14/22 cinnamon bark 500 mg capsule (Cinnamon) 2,000 mg PO DAILY SUPPLEMENT 08/14/22 clopidogrel 75 mg tablet 75 mg PO DAILY BLOOD THINNER 08/14/22 gabapentin 300 mg tablet 300 mg PO TID NERVE PAIN 08/14/22 glimepiride 2 mg tablet 2 mg PO BID DIABETES 08/14/22 insulin NPH isoph U-100 human 100 unit/mL (3 mL) subcutaneous pen (Humulin N NPH U-100 Insulin KwikPen) 25 unit subcut BID DIABETES 08/14/22 lactobacillus combo no.11 15 billion cell sprinkle capsule 1 cap PO DAILY PROBIOTIC 08/14/22 wuuzyfrt-tuo-yauax 200 mcg-lycop 175 mcg-lutei 250 mcg-herb 178 tablet 1 tab PO DAILY VITAMIN 08/14/22 omega 7-mkx-mjj-fish oil 300 mg-1,000 mg capsule (Fish Oil) 2 cap PO DAILY SUPPLEMENT 08/14/22 omeprazole 20 mg capsule,delayed release 20 mg PO DAILY REFLUX 08/14/22 acetaminophen 500 mg tablet 1,000 mg PO Q6H PRN PRN Pain 1-10 Or Fever #0 tabs 08/18/22 amlodipine 10 mg tablet 10 mg PO DAILY 30 days #30 tabs 08/18/22 bumetanide 0.5 mg tablet 1 mg PO DAILY 30 days #60 tabs 08/18/22 carvedilol 25 mg tablet 25 mg PO BIDCM 30 days #60 tabs 08/18/22 empagliflozin 10 mg tablet (Jardiance) 10 mg PO DAILY@0800 30 days #30 tabs 08/18/22 hydralazine 50 mg tablet 100 mg PO TID 30 days #180 tabs 08/18/22 potassium chloride 20 mEq tablet,extended release(part/cryst) (Klor-Con M) 20 meq PO DAILYCM 30 days #30 tabs 08/18/22 Hospital Course Operations None Procedures None Summary of Care Provided Minutes Spent on Discharge: 35 Hospital Course: 72 year old male with below past medical history hospitalized for acute respiratory failure requiring intubation secondary to acute systolic congestive heart failure, Hemophilus influenza bronchitis, complicated by acute kidney injury, admitted to TCU with debility, here for rehabilitation, strengthening, prior to discharge home with . Discharge home with family support 08/19/2022, [facility] PT/OT/SN, Wide Front Wheeled Walker. Physical Exam Const alert General Appearance: cooperative HEENT normocephalic Eyes PERRL and EOMs intact bilaterally Neck supple, no JVD and no carotid bruits Resp normal respiratory effort, normal air movement and clear to auscultation bilaterally Cardio regular rate and regular rhythm GI normal to inspection, nondistended, normoactive bowel sounds, non-tender and non-distended Extremity normal capillary refill General Extremity: Negative for edema Skin no rashes or lesions noted General Skin Exam: no breakdown Psych affect normal Appearance: appropriate Weight / BMI Weight Weight: 117.934 kg Body Mass Index (BMI) 34.2 ABG / Lab / Microbiology Data Result Diagrams: 08/15/22 07:02 08/17/22 05:25 Laboratory: Laboratory Results - last 24 hr 08/17/22 21:04: POC Glucose 212 H 08/18/22 06:11: POC Glucose 162 H 08/18/22 11:20: POC Glucose 139 H 08/18/22 16:22: POC Glucose 209 H Microbiology: Microbiology 08/18/22 10:50 Nasal Secretion SARS-CoV-2 Antigen (Rapid) - Final 08/16/22 06:06 Nasal Secretion SARS-CoV-2 Antigen (Rapid) - Final 08/14/22 17:35 Nasal Secretion SARS-CoV-2 Antigen (Rapid) - Final D/C Instructions Discharge Diet: No restrictions Discharge Activity: Return to Normal Activity, May Shower and Use Walker Weight Bearing Status: Weight bearing as tolerated Call your doctor if you observe: Fever of 101 or Higher, Inability to urinate, Inability to have a bowel movement, Shortness of breath, Dizziness, Fainting spells, Swelling in the ankles, Chest pain and Uncontrolled pain Additional Instructions: Discharge home with family support 08/19/2022, [facility] Care PT/OT/SN, Wide Front Wheeled Walker. Meaningful Use Info Meaningful Use Diagnoses (Choose all that apply): None applicable Discharge Plan Admission Admit Date/Time: 08/14/22 16:42 Primary Reason for Your Visit: Debility. Attending Provider: Nirav Kinsey Chi Primary Care Provider: Richard Jones Instructions Additional Instructions / Restrictions: Discharge home with family support 08/19/2022, [facility] Care PT/OT/SN, Wide Front Wheeled Walker. Discharge Orders/Prescriptions Prescriptions: New acetaminophen 500 mg Tablet 1,000 mg PO Q6H PRN PRN (Reason: Pain 1-10 Or Fever) Qty: 0 0RF carvedilol 25 mg Tablet 25 mg PO BIDCM 30 Days Qty: 60 0RF amlodipine 10 mg Tablet 10 mg PO DAILY 30 Days Qty: 30 0RF bumetanide 0.5 mg Tablet 1 mg PO DAILY 30 Days Qty: 60 0RF potassium chloride [Klor-Con M20] 20 mEq Tablet,Er Particles/Crystals 20 meq PO DAILYCM 30 Days Qty: 30 0RF hydralazine 50 mg Tablet 100 mg PO TID 30 Days Qty: 180 0RF Jardiance 10 mg Tablet 10 mg PO DAILY@0800 30 Days Qty: 30 0RF Continued atorvastatin 40 mg Tablet 40 mg PO DAILY clopidogrel 75 mg Tablet 75 mg PO DAILY glimepiride 2 mg Tablet 2 mg PO BID omeprazole 20 mg Capsule,Delayed Release(Dr/Ec) 20 mg PO DAILY aspirin 81 mg Tablet 81 mg PO DAILY Humulin N NPH Insulin KwikPen 100 unit/mL (3 mL) Insulin Pen 25 unit SUBCUT BID gabapentin 300 mg Tablet 300 mg PO TID omega 1-rjg-okz-fish oil [Fish Oil] 300-1,000 mg Capsule 2 cap PO DAILY [id number]-kizoh-rqvek-[id number] 200-175-250 mcg Tablet 1 tab PO DAILY lactobacillus combo no.11 15 billion cell Capsule, Sprinkle 1 cap PO DAILY Rx Instructions: do not crush/chew/cut; swallow whole OR may open and sprinkle in cold drink/food ascorbic acid (vitamin C) 1,000 mg Capsule 1 g PO DAILY Discontinued doxycycline hyclate 100 mg Capsule 100 mg PO BID PRN (Reason: ATB) hydralazine 100 mg Tablet 100 mg PO TID Jardiance 10 mg Tablet 10 mg PO DAILY No Action carvedilol 25 mg Tablet 25 mg PO BID Rx Instructions: must administer with a meal/food acetaminophen 650 mg Tablet Extended Release 1,300 mg PO Q8H amlodipine 10 mg Tablet 10 mg PO DAILY bumetanide 1 mg Tablet 1 mg PO DAILY cinnamon bark [Cinnamon] 500 mg Capsule 2,000 mg PO DAILY Referrals / Follow Up: WONG COVARRUBIAS MD [Other] - 10/16/22 10:00 am ([facility] OCTOB[facility] 16 @ 10AM) DEVICE CHECK IN CLINIC W/[facility] [Other] - 11/12/22 1:00 pm JORGE WASHINGTON PA-C [Other] - 12/16/22 10:30 am Richard Jones MD [Primary Care Provider] - Disposition Disposition (needs filled in before D/C Order can be placed): Home Health Service
[2022-08-18 21:26] LABS: Bedside Glucose 220 mg/dL (74-106)
[2022-08-18] MEDS: Atorvastatin Calcium 40 MG Tablet PO (21:49)
[2022-08-18] MEDS: Insulin Glargine-YFGN 100 UNIT/ML Pen 50 UNIT SC (21:50)
[2022-08-19] VITALS (7 sets, daily range): BP systolic 135–148; BP diastolic 69–80; PULSE 60–68; RESP 18–22; TEMP 36.6–37; O2SAT 90–95
--- NOTE | 2022-08-19 00:17 | NURSING ---
Patient asked to be assisted to chair. Stated he felt somewhat SOB. SpO2 88% on RA. O2 2L/min via NC applied. Patient adjusted in bed. Stated he has been unable to fall asleep as well. Will continue to monitor.
[2022-08-19] MEDS: Doxycycline 100 MG CAPSULE PO ×2 (04:52→17:52)
[2022-08-19] MEDS: amLODIPine 10 MG Tablet PO (04:52)
[2022-08-19] MEDS: Bumetanide 0.5 MG Tablet 1 MG PO ×2 (04:52→10:24)
[2022-08-19] MEDS: hydrALAZINE 50 MG Tablet 100 MG PO ×3 (04:52→21:59)
[2022-08-19] MEDS: Omega-3 Acid Ethyl Esters 1 GM Capsule PO (04:52)
[2022-08-19] MEDS: Clopidogrel Bisulfate 75 MG Tablet PO (04:53)
[2022-08-19] MEDS: Pantoprazole Sodium 20 MG Tablet PO (04:53)
[2022-08-19] MEDS: Ascorbic Acid 500 MG Tablet 1000 MG PO (04:53)
[2022-08-19] MEDS: Nystatin Powder 15gm Bottle 1 APPLIC TOPICAL ×2 (04:58→22:08)
[2022-08-19] MEDS: Menthol/Lanolin/Calamine/Znox 113 GM Tube 1 APPLIC TOPICAL ×2 (04:59→22:09)
[2022-08-19 06:35] LABS: Bedside Glucose 145 mg/dL (74-106)
--- NOTE | 2022-08-19 08:15 | NURSING ---
Technical Designer Note; MDS Complete
[2022-08-19] MEDS: Aspirin 81 MG TAB.CHEW PO (08:20)
[2022-08-19] MEDS: Carvedilol 25 MG Tablet PO ×2 (08:20→17:56)
[2022-08-19] MEDS: Empagliflozin 10 MG Tablet PO (08:20)
[2022-08-19] MEDS: Insulin Lispro 100 UNIT/ML INSULN.PEN 10 UNIT SC ×3 (08:20→17:50)
[2022-08-19] MEDS: Potassium Chloride Oral Tablet 20 MEQ PO (08:20)
[2022-08-19] MEDS: Glimepiride 2 MG Tablet PO ×2 (08:21→19:52)
[2022-08-19] MEDS: Multivitamins,Ther W-Minerals Tablet 1 TABLET PO (08:21)
[2022-08-19] MEDS: Gabapentin 300 MG Capsule PO ×3 (08:22→17:51)
--- NOTE | 2022-08-19 08:30 | CASEMGMT ---
Social Work Brief interview for mental status (BIMS) and resident mood interview (PHQ-9) completed on this day. BIMS score . PHQ-9 score . Joo STEPHENSON, RENÉS
--- NOTE | 2022-08-19 08:40 | CASEMGMT ---
Social Work This social media executive sent discharge summary and home health order to [facility] care [facility]. This social media executive confirmed with patient that patient has a front wheeled walker in the home and is aware of how to go about private paying for a wide front wheeled walker. Patient denies any concerns on returning to home. PLAN: Home with home health services and family support. Proposed discharge date: 08/19/2022 per patient request. Joo STEPHENSON, DAWN
--- NOTE | 2022-08-19 09:08 | NURSING ---
pt noted to have SOB with AM care, sat 88-90% on Rm. LT foot edematous, some redness noted to LLE as well. Dr Kinsey updated, new order for CXR, BNP, & doppler LLE. oxygen applied to 2 liters NC. updated son Luis & he will update other brothers.
--- NOTE | 2022-08-19 09:10 | CASEMGMT ---
Social Work Notified by nursing staff that patient is medically declining and will possibly not be able to discharge today. This manager social media to patient room. Patient was to have plan of care meeting today, prior to discharge date being set. This manager social media educating patient that plan would be to have plan of care meeting today at 10:20 in the event that patient is not able to discharge to the community today, patient voiced understanding and plans to contact family to come in for meeting. Will continue to follow. Joo STEPHENSON, DAWN
[2022-08-19 09:57] LABS: BNP,B-Type NATRIURETIC PEPTIDE 600.5 pg/mL (0-100)
--- NOTE | 2022-08-19 10:00 | RAD_ITS ---
HISTORY: SOB. TECHNIQUE: XR Chest 2 Views. COMPARISON: None. FINDINGS: CARDIOMEDIASTINAL BORDERS: Cardiac silhouette within normal limits in size with pacemaker in place. Calcification mild tortuosity of the aorta. LUNGS: Mild interstitial opacities in the mid to lower lungs. Mild focal opacities in the lung bases. PLEURA: Mild bilateral pleural effusions. OSSEOUS STRUCTURES: Old right eighth rib fracture. RAD/Chest PA and Lateral IMPRESSION: Mild pleural effusions with pulmonary edema. Mild bibasilar atelectasis or pneumonia. Electronically Signed: Shaniqua Parks MD at 10:27 EST ,
--- NOTE | 2022-08-19 10:06 | NURSING ---
PT OFF UNIT VIA WC TO XRAY
--- NOTE | 2022-08-19 10:20 | CASEMGMT ---
Social Work Plan of care meeting held. Patient present as well as patient son, Luis. Patient has decided to stay on the Transitional Care Unit due to medical decline and medical recommendations. Patient is now on oxygen and does not where oxygen at home. This director social educating patient and Luis that insurance update is due on 08/25/2022 with on guarantee of continued stay approval. Patient plans to return to home to in-law suite with patient son when patient is medically cleared. Patient continues to be agreeable to home health care when patient is cleared for discharge. Patient to continue with further care and treatment on the Transitional Care Unit. Telephone call to [facility] services, Jailene. This director social educated Jailene that discharge date has been postponed. Jailene confirms to be able to accept patient when discharge date is set. Social Work to continue to follow. Joo Amador MSW, DAWN
--- NOTE | 2022-08-19 11:02 | NURSING ---
Addendum entered by Shayna Nichols 08/19/22 11:08: STREET LIGHT REPAIRER REPORTED SMALL CLOT JUST BELOW KNEE IN GASTROC IN LEFT LEG Original Note: VASCULAR HERE FOR DOPPLER
--- NOTE | 2022-08-19 11:16 | NURSING ---
DR BUTT UPDATED ON CXR, BNP, DOPPLER RESULTS. NEW ORDER TO DC ASPIRIN, START ELIQUIS, INCREASE BUMEX, GET WEIGHT TODAY.
[2022-08-19 11:50] LABS: Bedside Glucose 139 mg/dL (74-106)
--- NOTE | 2022-08-19 13:50 | NURSING ---
Addendum entered by Shayna Nichols 08/19/22 13:54: new order IV lasix 80mg bid, give 80mg now start BID tomorrow. Original Note: dr johnson updated, pt requiring oxygen increase, sat 90% on 2 liters, increased to 4 liters sat 93%. labored breathing with movement.
[2022-08-19] MEDS: Furosemide 100 MG/10 ML Vial 80 MG IV ×2 (14:03→19:52)
[2022-08-19] MEDS: 0.9% Saline Lock 10 ML Syringe IV (14:09)
--- NOTE | 2022-08-19 15:33 | CHAPLAIN ---
Type of Pastoral Visit _x__ Initial Visit ___ Follow-up Visit ___ On-call Visit ___ General Patient Visit ___ Spiritual Assessment ___ Family Conference ___ Bereavement ___ Rapid Response ___ Code Blue ___ Other (describe below) Pastoral Care Referral From _x__ Patient ___ Family ___ Nurse ___ Physician ___ Radiagraph Operator ___ Terminal Worker ___ Other (describe below) Sacrament/Intervention ___ Active listening ___ Anointing ___ Roman Catholic ___ Bereavement ___ Communion ___ Yudy exploration ___ ___ Life review _x__ Prayer ___ Reconciliation ___ Sacrament of Sick _x__ Supportive presence ___ Wedding ___ Other (describe below) Pastoral Comments many family members were in the room at this time; this compliance spec learned later that pt had a change of plans due to new issues; offered support; pt welcomed presence and prayer but was somewhat labored in speaking; this visit was brief; one son did more of the talking and used humor to lighten the situation; prayer and offer of further support was given
[2022-08-19 17:06] LABS: Bedside Glucose 108 mg/dL (74-106)
--- NOTE | 2022-08-19 17:21 | CASEMGMT ---
Social Work This worker notified of pt's decline and postponed DC. Sons present in room. Spoke with pt and son's. Provided support. Offered ongoing support and assistance with DC plans. Educated insurance NRD 08/25 if pt continues to remain in TCU. All parties appreciative of support/check-in. Will continue to follow. Tosin Valiente, RECONCILIATION MANAGER BAND BIAS MACHINE OPERATOR
[2022-08-19] MEDS: APIXABAN 5 MG TABLET 10 MG PO (17:53)
[2022-08-19] MEDS: Ipratropium/Albuterol Sulfate 3 ML AMPUL.NEB INHALATION (19:20)
[2022-08-19] MEDS: Potassium Chloride Oral Tablet 20 MEQ 40 MEQ PO (19:29)
[2022-08-19 22:00] LABS: Bedside Glucose 75 mg/dL (74-106)
[2022-08-19] MEDS: Atorvastatin Calcium 40 MG Tablet PO (22:00)
[2022-08-19 22:23] LABS: Anion Gap 9 (5-15); BUN 73 mg/dL (7-18); BUN/Creat Ratio 41.2 RATIO (10-20); Calcium,Total 9.5 mg/dL (8.5-10.1); Chloride 101 mmol/L (98-107); Creatinine, Serum 1.77 mg/dL (0.70-1.30); EST Glomerular Filtration Rate 40 mL/min (>60); Est Glom Filt Rate - Afr Amer 49 mL/min (>60); Estimated Creatinine Clearance 42.63 ml/min; Glucose 81 mg/dL (74-106); Potassium 3.9 mmol/L (3.5-5.1); Sodium Level 139 mmol/L (136-145)
[2022-08-19 23:30] LABS: Bedside Glucose 92 mg/dL (74-106)
[2022-08-20 05:11] VITALS: BP 116/66; PULSE 61
[2022-08-20] MEDS: Ascorbic Acid 500 MG Tablet 1000 MG PO (05:11)
[2022-08-20] MEDS: hydrALAZINE 50 MG Tablet 100 MG PO ×3 (05:11→22:19)
[2022-08-20] MEDS: APIXABAN 5 MG TABLET 10 MG PO ×2 (05:12→18:05)
[2022-08-20] MEDS: Menthol/Lanolin/Calamine/Znox 113 GM Tube 1 APPLIC TOPICAL ×2 (05:12→18:11)
[2022-08-20] MEDS: Omega-3 Acid Ethyl Esters 1 GM Capsule PO (05:12)
[2022-08-20] MEDS: Pantoprazole Sodium 20 MG Tablet PO (05:12)
[2022-08-20] MEDS: Senna/Docusate Sodium 1 Tablet PO ×2 (05:12→18:05)
[2022-08-20] MEDS: amLODIPine 10 MG Tablet PO (05:12)
[2022-08-20] MEDS: Furosemide 100 MG/10 ML Vial 80 MG IV ×2 (05:12→13:00)
[2022-08-20] MEDS: Clopidogrel Bisulfate 75 MG Tablet PO (05:12)
[2022-08-20] MEDS: Nystatin Powder 15gm Bottle 1 APPLIC TOPICAL ×2 (05:13→18:11)
[2022-08-20] MEDS: 0.9% Saline Lock 10 ML Syringe IV (05:19)
[2022-08-20 06:50] VITALS: PULSE 60; RESP 18; O2SAT 98
[2022-08-20] MEDS: Ipratropium/Albuterol Sulfate 3 ML AMPUL.NEB INHALATION (06:50)
[2022-08-20 07:15] LABS: Bedside Glucose 184 mg/dL (74-106)
[2022-08-20 08:01] LABS: Anion Gap 10 (5-15); BUN 71 mg/dL (7-18); BUN/Creat Ratio 40.3 RATIO (10-20); Calcium,Total 8.8 mg/dL (8.5-10.1); Chloride 100 mmol/L (98-107); Creatinine, Serum 1.76 mg/dL (0.70-1.30); EST Glomerular Filtration Rate 41 mL/min (>60); Est Glom Filt Rate - Afr Amer 49 mL/min (>60); Estimated Creatinine Clearance 42.88 ml/min; Glucose 171 mg/dL (74-106); Potassium 4.1 mmol/L (3.5-5.1); Sodium Level 137 mmol/L (136-145)
[2022-08-20] MEDS: Carvedilol 25 MG Tablet PO ×2 (08:34→18:04)
[2022-08-20] MEDS: Empagliflozin 10 MG Tablet PO (08:35)
[2022-08-20] MEDS: Glimepiride 2 MG Tablet PO ×2 (08:35→18:04)
[2022-08-20] MEDS: Gabapentin 300 MG Capsule PO ×3 (08:35→18:05)
[2022-08-20] MEDS: Multivitamins,Ther W-Minerals Tablet 1 TABLET PO (08:35)
[2022-08-20] MEDS: Potassium Chloride Oral Tablet 20 MEQ PO ×2 (08:35→18:05)
[2022-08-20] MEDS: Acetaminophen 500 MG Tablet 1000 MG PO (08:41)
--- NOTE | 2022-08-20 09:00 | RAD_ITS ---
STUDY: X-RAY CHEST REASON FOR EXAM: Male, 72 years old. possible aspiration TECHNIQUE: Single AP portable view of the chest. COMPARISON: August 19, 2022 FINDINGS: Stable left chest cardiac device and leads. No change in mild patchy infiltrates in the bilateral mid to lower lung costello. The lungs are chronically hyperinflated. There is no demonstrated pleural abnormality. There is mild cardiac enlargement. Normal mediastinum and debo. Normal visualized pulmonary arteries. There is atherosclerotic tortuosity of the aortic arch and descending thoracic aorta. Stable visualized osseous structures. There is no demonstrated abnormality of the visualized soft tissue structures of the upper abdomen. RAD/Chest PA and Lateral IMPRESSION: 1. No change in mild patchy infiltrates in the bilateral mid to lower lung costello. The lungs are chronically hyperinflated. Electronically Signed: Maycol Potter MD at 9:21 EST ,
[2022-08-20] MEDS: levoFLOXacin IV 750 MG/150 ML BAG 100 MG IV (10:41)
[2022-08-20 11:15] LABS: Bedside Glucose 138 mg/dL (74-106)
[2022-08-20] MEDS: Insulin Lispro 100 UNIT/ML INSULN.PEN 10 UNIT SC ×2 (12:44→18:02)
[2022-08-20 13:00] VITALS: PULSE 62
[2022-08-20 13:01] VITALS: BP 116/69; PULSE 62; RESP 18; TEMP 36.4; O2SAT 93
[2022-08-20 17:15] LABS: Bedside Glucose 200 mg/dL (74-106)
[2022-08-20 22:00] VITALS: PULSE 60; RESP 16; O2SAT 96
[2022-08-20] MEDS: Atorvastatin Calcium 40 MG Tablet PO (22:16)
[2022-08-20 22:19] VITALS: BP 171/64; PULSE 60
[2022-08-20] MEDS: Insulin Glargine-YFGN 100 UNIT/ML Pen 50 UNIT SC (22:20)
[2022-08-21] VITALS (11 sets, daily range): BP systolic 130–152; BP diastolic 65–75; PULSE 59–69; RESP 16–18; TEMP 36.6; O2SAT 93–97
[2022-08-21 01:15] LABS: Bedside Glucose 219 mg/dL (74-106)
[2022-08-21 06:21] LABS: Anion Gap 9 (5-15); BUN 75 mg/dL (7-18); BUN/Creat Ratio 36.4 RATIO (10-20); Calcium,Total 8.7 mg/dL (8.5-10.1); Chloride 101 mmol/L (98-107); Creatinine, Serum 2.06 mg/dL (0.70-1.30); EST Glomerular Filtration Rate 34 mL/min (>60); Est Glom Filt Rate - Afr Amer 41 mL/min (>60); Estimated Creatinine Clearance 36.63 ml/min; Glucose 209 mg/dL (74-106); Potassium 3.9 mmol/L (3.5-5.1); Sodium Level 137 mmol/L (136-145)
[2022-08-21 06:51] LABS: Bedside Glucose 193 mg/dL (74-106)
[2022-08-21] MEDS: Pantoprazole Sodium 20 MG Tablet PO (07:02)
[2022-08-21] MEDS: amLODIPine 10 MG Tablet PO (07:02)
[2022-08-21] MEDS: Omega-3 Acid Ethyl Esters 1 GM Capsule PO (07:02)
[2022-08-21] MEDS: hydrALAZINE 50 MG Tablet 100 MG PO ×3 (07:02→21:56)
[2022-08-21] MEDS: Senna/Docusate Sodium 1 Tablet PO ×2 (07:02→18:09)
[2022-08-21] MEDS: Furosemide 100 MG/10 ML Vial 80 MG IV (07:03)
[2022-08-21] MEDS: APIXABAN 5 MG TABLET 10 MG PO ×2 (07:03→18:08)
[2022-08-21] MEDS: Clopidogrel Bisulfate 75 MG Tablet PO (07:03)
[2022-08-21] MEDS: Nystatin Powder 15gm Bottle 1 APPLIC TOPICAL ×2 (07:04→18:09)
[2022-08-21] MEDS: Ascorbic Acid 500 MG Tablet 1000 MG PO (07:04)
[2022-08-21] MEDS: Menthol/Lanolin/Calamine/Znox 113 GM Tube 1 APPLIC TOPICAL (07:05)
[2022-08-21] MEDS: Ipratropium/Albuterol Sulfate 3 ML AMPUL.NEB INHALATION ×3 (07:42→19:00)
--- NOTE | 2022-08-21 08:06 | NURSING ---
Pt voices that he feels better than he did on the prior shift. @ the beginning of the shift pt was on 5L of oxygen. Pt currently on 3.5L @ 93%. No c/o.
[2022-08-21] MEDS: Glimepiride 2 MG Tablet PO ×2 (08:24→18:07)
[2022-08-21] MEDS: Gabapentin 300 MG Capsule PO ×3 (08:24→18:07)
[2022-08-21] MEDS: Carvedilol 25 MG Tablet PO ×2 (08:25→18:08)
[2022-08-21] MEDS: Empagliflozin 10 MG Tablet PO (08:25)
[2022-08-21] MEDS: Potassium Chloride Oral Tablet 20 MEQ PO ×2 (08:26→18:07)
[2022-08-21] MEDS: Insulin Lispro 100 UNIT/ML INSULN.PEN 10 UNIT SC ×3 (08:27→18:10)
[2022-08-21] MEDS: Multivitamins,Ther W-Minerals Tablet 1 TABLET PO (08:30)
[2022-08-21 11:40] LABS: Bedside Glucose 199 mg/dL (74-106)
[2022-08-21] MEDS: Furosemide 40 MG/4 ML Vial IV (13:53)
[2022-08-21 16:26] LABS: Bedside Glucose 167 mg/dL (74-106)
[2022-08-21 21:46] LABS: Bedside Glucose 308 mg/dL (74-106)
[2022-08-21] MEDS: Atorvastatin Calcium 40 MG Tablet PO (21:56)
[2022-08-21] MEDS: Insulin Glargine-YFGN 100 UNIT/ML Pen 50 UNIT SC (21:57)
[2022-08-22] VITALS (9 sets, daily range): BP systolic 130–157; BP diastolic 62–70; PULSE 60–66; RESP 16–19; TEMP 37.3; O2SAT 93–96
[2022-08-22] MEDS: Ipratropium/Albuterol Sulfate 3 ML AMPUL.NEB INHALATION ×4 (01:33→20:00)
[2022-08-22 05:39] LABS: Absolute Lymphocyte Count 0.31 X10^3/uL (0.83-4.51); Absolute Neutrophil Count 8.1 X10^3/uL (2.0-7.7); Basophil# 0.04 X10^3/uL; Basophil% 0.4 % (0-1); Eosinophil# 0.25 X10^3/uL; Eosinophils% 2.6 % (0-5); Hemoglobin 9.7 g/dL (13.0-16.5); Lymphocyte # 0.31 X10^3/ul (0.83-4.51); Lymphocyte % 3.2 % (19-41); Mean Corp Hgb Conc 32.3 g/dL (32-36); Mean Corpuscular Hgb 29.6 pg (27.0-32.0); Mean Corpuscular Volume 91.5 fL (80-94); Mean Platelet Vol. 9.6 fl (6.2-12.0); Monocyte# 0.97 X10^3/uL; NRBC Flagged by Analyzer 0 % (0-5); Neutrophil % 83.4 % (47-70); POSITIVE DIFFERENTIAL YES; Platelet Count 309 K/mm3 (150-450); RBC Distribution Width CV 13.4 % (11.6-14.6); RBC Distribution Width SD 44.7 fl (35.1-43.9); Red Blood Count 3.28 M/mm3 (4.6-6.2); White Blood Count 9.7 K/mm3 (4.4-11.0)
[2022-08-22 05:42] LABS: Differential Indicated SCAN CRITERIA MET
[2022-08-22 05:58] LABS: Differential Comment SCANNED
[2022-08-22 06:03] LABS: Anion Gap 10 (5-15); BUN 70 mg/dL (7-18); BUN/Creat Ratio 38.7 RATIO (10-20); Calcium,Total 8.9 mg/dL (8.5-10.1); Chloride 102 mmol/L (98-107); Creatinine, Serum 1.81 mg/dL (0.70-1.30); EST Glomerular Filtration Rate 39 mL/min (>60); Est Glom Filt Rate - Afr Amer 48 mL/min (>60); Estimated Creatinine Clearance 41.69 ml/min; Glucose 146 mg/dL (74-106); Potassium 3.5 mmol/L (3.5-5.1); Sodium Level 139 mmol/L (136-145)
[2022-08-22] MEDS: Senna/Docusate Sodium 1 Tablet PO ×2 (06:44→18:09)
[2022-08-22] MEDS: Ascorbic Acid 500 MG Tablet 1000 MG PO (06:44)
[2022-08-22] MEDS: Clopidogrel Bisulfate 75 MG Tablet PO (06:44)
[2022-08-22] MEDS: hydrALAZINE 50 MG Tablet 100 MG PO ×3 (06:44→19:48)
[2022-08-22] MEDS: Omega-3 Acid Ethyl Esters 1 GM Capsule PO (06:44)
[2022-08-22] MEDS: amLODIPine 10 MG Tablet PO (06:44)
[2022-08-22] MEDS: Furosemide 40 MG/4 ML Vial IV ×2 (06:44→14:28)
[2022-08-22] MEDS: Pantoprazole Sodium 20 MG Tablet PO (06:44)
[2022-08-22] MEDS: APIXABAN 5 MG TABLET 10 MG PO ×2 (06:44→18:09)
[2022-08-22 06:50] LABS: Bedside Glucose 158 mg/dL (74-106)
[2022-08-22] MEDS: Menthol/Lanolin/Calamine/Znox 113 GM Tube 1 APPLIC TOPICAL ×2 (06:56→18:16)
[2022-08-22] MEDS: Nystatin Powder 15gm Bottle 1 APPLIC TOPICAL ×2 (06:57→18:16)
[2022-08-22] MEDS: Multivitamins,Ther W-Minerals Tablet 1 TABLET PO (08:22)
[2022-08-22] MEDS: Insulin Lispro 100 UNIT/ML INSULN.PEN 10 UNIT SC ×3 (08:22→18:07)
[2022-08-22] MEDS: Glimepiride 2 MG Tablet PO ×2 (08:22→18:09)
[2022-08-22] MEDS: Gabapentin 300 MG Capsule PO ×3 (08:22→18:13)
[2022-08-22] MEDS: Potassium Chloride Oral Tablet 20 MEQ PO ×2 (08:22→18:10)
[2022-08-22] MEDS: Carvedilol 25 MG Tablet PO ×2 (08:22→18:10)
[2022-08-22] MEDS: Empagliflozin 10 MG Tablet PO (08:22)
[2022-08-22] MEDS: levoFLOXacin IV 750 MG/150 ML BAG 100 MG IV (09:53)
[2022-08-22] MEDS: 0.9% Saline Lock 10 ML Syringe IV ×3 (09:53→19:48)
--- NOTE | 2022-08-22 10:07 | NURSING ---
pt requested Pulse ox be checked, had just moved from chair to bed and SOB with labored breathing. sat 93% on room air, applied 2 liter oxygen per pt request d/t feeling uncomfortable.
[2022-08-22] MEDS: Acetaminophen 500 MG Tablet 1000 MG PO (10:09)
[2022-08-22] MEDS: Tuberculin,Purif.prot.deriv. 50 TU/ML Vial 0.1 ML ID (11:01)
[2022-08-22 12:15] LABS: Bedside Glucose 169 mg/dL (74-106)
[2022-08-22 16:41] LABS: Bedside Glucose 132 mg/dL (74-106)
[2022-08-22] MEDS: Furosemide 100 MG/10 ML Vial 80 MG IV (18:08)
[2022-08-22] MEDS: Atorvastatin Calcium 40 MG Tablet PO (19:48)
[2022-08-22 21:56] LABS: Bedside Glucose 160 mg/dL (74-106)
[2022-08-22] MEDS: Insulin Glargine-YFGN 100 UNIT/ML Pen 50 UNIT SC (22:07)
[2022-08-23] VITALS (8 sets, daily range): BP systolic 122–178; BP diastolic 65–73; PULSE 60–70; RESP 16–18; TEMP 36.6; O2SAT 91–96
[2022-08-23] MEDS: hydrALAZINE 50 MG Tablet 100 MG PO ×3 (05:36→22:50)
[2022-08-23] MEDS: Menthol/Lanolin/Calamine/Znox 113 GM Tube 1 APPLIC TOPICAL ×2 (05:37→17:58)
[2022-08-23] MEDS: APIXABAN 5 MG TABLET 10 MG PO ×2 (05:40→17:57)
[2022-08-23] MEDS: Furosemide 100 MG/10 ML Vial 80 MG IV (05:40)
[2022-08-23] MEDS: Omega-3 Acid Ethyl Esters 1 GM Capsule PO (05:40)
[2022-08-23] MEDS: amLODIPine 10 MG Tablet PO (05:41)
[2022-08-23] MEDS: Senna/Docusate Sodium 1 Tablet PO ×2 (05:41→17:57)
[2022-08-23] MEDS: Pantoprazole Sodium 20 MG Tablet PO (05:41)
[2022-08-23] MEDS: Ascorbic Acid 500 MG Tablet 1000 MG PO (05:41)
[2022-08-23] MEDS: Clopidogrel Bisulfate 75 MG Tablet PO (05:41)
[2022-08-23] MEDS: Nystatin Powder 15gm Bottle 1 APPLIC TOPICAL ×2 (05:42→17:59)
[2022-08-23] MEDS: 0.9% Saline Lock 10 ML Syringe IV ×2 (05:58→13:56)
[2022-08-23 06:23] LABS: Anion Gap 8 (5-15); BUN 72 mg/dL (7-18); BUN/Creat Ratio 39.6 RATIO (10-20); Calcium,Total 9.3 mg/dL (8.5-10.1); Chloride 101 mmol/L (98-107); Creatinine, Serum 1.82 mg/dL (0.70-1.30); EST Glomerular Filtration Rate 39 mL/min (>60); Est Glom Filt Rate - Afr Amer 47 mL/min (>60); Estimated Creatinine Clearance 41.46 ml/min; Glucose 175 mg/dL (74-106); Potassium 3.7 mmol/L (3.5-5.1); Sodium Level 139 mmol/L (136-145)
[2022-08-23] MEDS: Ipratropium/Albuterol Sulfate 3 ML AMPUL.NEB INHALATION ×2 (07:06→13:50)
[2022-08-23] MEDS: Empagliflozin 10 MG Tablet PO (08:27)
[2022-08-23] MEDS: Potassium Chloride Oral Tablet 20 MEQ PO ×2 (08:27→17:57)
[2022-08-23] MEDS: Gabapentin 300 MG Capsule PO ×3 (08:27→17:55)
[2022-08-23] MEDS: Insulin Lispro 100 UNIT/ML INSULN.PEN 10 UNIT SC ×2 (08:27→17:57)
[2022-08-23] MEDS: Multivitamins,Ther W-Minerals Tablet 1 TABLET PO (08:27)
[2022-08-23] MEDS: Carvedilol 25 MG Tablet PO ×2 (08:28→17:57)
[2022-08-23] MEDS: Glimepiride 2 MG Tablet PO ×2 (08:28→17:57)
--- NOTE | 2022-08-23 10:30 | NURSING ---
Attempted to get pt weight multiple times this AM and pt refused d/t being too tired. Did wake pt to get weight since it was not gotten before [facility] and pt stated I haven't slept in 2 days and I am sure in the hell not getting up to do it now. Scale sitting outside pt door, pt aware and will get when pt ready.
[2022-08-23 11:45] LABS: Bedside Glucose 106 mg/dL (74-106)
[2022-08-23] MEDS: Furosemide 40 MG/4 ML Vial IV (13:58)
[2022-08-23 17:06] LABS: Bedside Glucose 231 mg/dL (74-106)
[2022-08-23 21:46] LABS: Bedside Glucose 221 mg/dL (74-106)
[2022-08-23] MEDS: Insulin Glargine-YFGN 100 UNIT/ML Pen 50 UNIT SC (22:51)
[2022-08-23] MEDS: Atorvastatin Calcium 40 MG Tablet PO (22:51)
[2022-08-24] VITALS (8 sets, daily range): BP systolic 130–154; BP diastolic 68–69; PULSE 60–63; RESP 16–18; TEMP 36.4; O2SAT 92–96
[2022-08-24] MEDS: amLODIPine 10 MG Tablet PO (03:25)
[2022-08-24] MEDS: Acetaminophen 500 MG Tablet 1000 MG PO ×2 (03:25→12:53)
[2022-08-24] MEDS: Ascorbic Acid 500 MG Tablet 1000 MG PO (03:26)
[2022-08-24] MEDS: Pantoprazole Sodium 20 MG Tablet PO (03:26)
[2022-08-24] MEDS: Clopidogrel Bisulfate 75 MG Tablet PO (03:26)
[2022-08-24 04:05] LABS: Bedside Glucose 203 mg/dL (74-106)
[2022-08-24] MEDS: Menthol/Lanolin/Calamine/Znox 113 GM Tube 1 APPLIC TOPICAL ×2 (05:56→17:44)
[2022-08-24] MEDS: APIXABAN 5 MG TABLET 10 MG PO ×2 (05:57→17:40)
[2022-08-24] MEDS: hydrALAZINE 50 MG Tablet 100 MG PO ×3 (05:57→21:08)
[2022-08-24] MEDS: Nystatin Powder 15gm Bottle 1 APPLIC TOPICAL ×2 (05:58→17:44)
[2022-08-24] MEDS: Senna/Docusate Sodium 1 Tablet PO (05:58)
[2022-08-24] MEDS: Omega-3 Acid Ethyl Esters 1 GM Capsule PO (05:58)
[2022-08-24] MEDS: 0.9% Saline Lock 10 ML Syringe IV ×2 (06:00→10:04)
[2022-08-24] MEDS: Furosemide 40 MG/4 ML Vial IV (06:00)
[2022-08-24 06:05] LABS: Anion Gap 8 (5-15); BUN 69 mg/dL (7-18); BUN/Creat Ratio 39.9 RATIO (10-20); Calcium,Total 9.2 mg/dL (8.5-10.1); Chloride 99 mmol/L (98-107); Creatinine, Serum 1.73 mg/dL (0.70-1.30); EST Glomerular Filtration Rate 41 mL/min (>60); Est Glom Filt Rate - Afr Amer 50 mL/min (>60); Estimated Creatinine Clearance 43.62 ml/min; Glucose 146 mg/dL (74-106); Potassium 3.5 mmol/L (3.5-5.1); Sodium Level 137 mmol/L (136-145)
[2022-08-24 06:55] LABS: Bedside Glucose 146 mg/dL (74-106)
[2022-08-24] MEDS: Ipratropium/Albuterol Sulfate 3 ML AMPUL.NEB INHALATION (07:34)
[2022-08-24] MEDS: Insulin Lispro 100 UNIT/ML INSULN.PEN 10 UNIT SC ×3 (08:02→17:38)
[2022-08-24] MEDS: Gabapentin 300 MG Capsule PO ×3 (08:03→17:49)
[2022-08-24] MEDS: Glimepiride 2 MG Tablet PO ×2 (08:03→17:42)
[2022-08-24] MEDS: Carvedilol 25 MG Tablet PO ×2 (08:04→17:41)
[2022-08-24] MEDS: Empagliflozin 10 MG Tablet PO (08:05)
[2022-08-24] MEDS: Multivitamins,Ther W-Minerals Tablet 1 TABLET PO (08:05)
[2022-08-24] MEDS: Potassium Chloride Oral Tablet 20 MEQ PO ×2 (08:05→17:41)
[2022-08-24] MEDS: levoFLOXacin IV 750 MG/150 ML BAG 100 MG IV (09:52)
[2022-08-24 11:11] LABS: Bedside Glucose 157 mg/dL (74-106)
--- NOTE | 2022-08-24 15:46 | CASEMGMT ---
Social Work Patient and patient family request to speak with social security assessor. This social security assessor met with patient and patient sonJaime in room. Patient is requesting for discharge date to be set for 08/25/2022. Patient plans to discharge to home with son and home health care through [facility] care, as previously set up for patient. This social security assessor collaborating with team. Nursing report that patient is still on an I.V. antibiotic until 08/27/2022. Nursing plan to speak with pediatrician/medical doctor, Dr. Kinsey to inquire if patient antibiotic could be changed to pill form. Therapy reports recommendation for patient to discharge with home health. Therapy is agreeable to discharge tomorrow, if patient is able to be medically cleared for discharge. Nursing staff to talk with Dr. Kinsey and Dr. Kinsey/nursing staff to update patient if patient is able to discharge to home tomorrow as Dr. Kinsey will be coming after social work hours. This social security assessor updated referral to [facility] for possible discharge tomorrow. Proposed discharge date: 08/25/[address] Kinsey approval. PLAN: Discharge to home with son and home health care. Social Work to continue to follow. Joo STEPHENSON, DAWN
--- NOTE | 2022-08-24 16:08 | CASEMGMT ---
Social Work Brief interview for mental status (BIMS) and resident mood assessment (PHQ-9) completed on this day. BIMS score . PHQ-9 score 11/23. Joo STEPHENSON, RENÉS
--- NOTE | 2022-08-24 16:40 | CASEMGMT ---
Addendum entered by Tosin Valiente 08/25/22 08:37: DC Summary sent via [facility] to [facility]. Original Note: Social Work Dr. Kinsey cleared patient for discharge. This social services manager updated patient on above. Patient plans to discharge to home with son and home health care. Patient family to provide transportation. Patient reports to have all needed DME, including a walker. Social Work to send D/C information to [facility] health care when obtained. Proposed discharge date: 08/25/2022 PLAN: Discharge to home with son and home health care. Joo STEPHENSON, DAWN
--- NOTE | 2022-08-24 17:00 | CHAPLAIN ---
Type of Pastoral Visit ___ Initial Visit _x__ Follow-up Visit ___ On-call Visit ___ General Patient Visit ___ Spiritual Assessment ___ Family Conference ___ Bereavement ___ Rapid Response ___ Code Blue ___ Other (describe below) Pastoral Care Referral From _x__ Patient ___ Family ___ Nurse ___ Physician ___ Videogame Designer ___ Blow Moulding Machine Operator ___ Other (describe below) Sacrament/Intervention _x__ Active listening ___ Anointing ___ Confucianist ___ Bereavement ___ Communion ___ Yudy exploration ___ _x__ Life review _x__ Prayer ___ Reconciliation ___ Sacrament of Sick _x__ Supportive presence ___ Wedding ___ Other (describe below) Pastoral Comments follow up to patient after brief encounter on Wednesday the ; pt does look better and states that he is doing better; pt expects to go home tomorrow and is thankful for the same; pt talks about the changes in his living arrangements and the of his ; pt is tearful; support and presence given; opportunity to listen and affirm the grief feelings; pt welcomes prayer support and presence
[2022-08-24 17:05] LABS: Bedside Glucose 162 mg/dL (74-106)
[2022-08-24] MEDS: Bumetanide 0.5 MG Tablet 1 MG PO (17:41)
[2022-08-24] MEDS: Insulin Glargine-YFGN 100 UNIT/ML Pen 50 UNIT SC (21:22)
[2022-08-24] MEDS: Atorvastatin Calcium 40 MG Tablet PO (21:29)
[2022-08-24 21:45] LABS: Bedside Glucose 180 mg/dL (74-106)
[2022-08-25] MEDS: amLODIPine 10 MG Tablet PO (05:59)
[2022-08-25] MEDS: Omega-3 Acid Ethyl Esters 1 GM Capsule PO (05:59)
[2022-08-25] MEDS: Bumetanide 0.5 MG Tablet 1 MG PO (05:59)
[2022-08-25] MEDS: APIXABAN 5 MG TABLET 10 MG PO (05:59)
[2022-08-25 06:00] VITALS: BP 141/78; PULSE 61
[2022-08-25] MEDS: hydrALAZINE 50 MG Tablet 100 MG PO (06:00)
[2022-08-25] MEDS: Senna/Docusate Sodium 1 Tablet PO (06:00)
[2022-08-25] MEDS: Pantoprazole Sodium 20 MG Tablet PO (06:00)
[2022-08-25] MEDS: Ascorbic Acid 500 MG Tablet 1000 MG PO (06:00)
[2022-08-25] MEDS: Clopidogrel Bisulfate 75 MG Tablet PO (06:00)
[2022-08-25] MEDS: Nystatin Powder 15gm Bottle 1 APPLIC TOPICAL (06:05)
[2022-08-25] MEDS: Menthol/Lanolin/Calamine/Znox 113 GM Tube 1 APPLIC TOPICAL (06:05)
[2022-08-25 06:18] VITALS: O2SAT 93
[2022-08-25 06:36] LABS: BUN 67 mg/dL (7-18); Creatinine, Serum 1.92 mg/dL (0.70-1.30); Glucose 113 mg/dL (74-106)
[2022-08-25 06:37] LABS: Anion Gap 7 (5-15); BUN/Creat Ratio 34.9 RATIO (10-20); Calcium,Total 9.8 mg/dL (8.5-10.1); Chloride 99 mmol/L (98-107); EST Glomerular Filtration Rate 37 mL/min (>60); Est Glom Filt Rate - Afr Amer 44 mL/min (>60); Potassium 4.1 mmol/L (3.5-5.1); Sodium Level 135 mmol/L (136-145)
[2022-08-25 08:35] VITALS: PULSE 62; RESP 18; O2SAT 97
[2022-08-25] MEDS: Insulin Lispro 100 UNIT/ML INSULN.PEN 10 UNIT SC (08:42)
[2022-08-25] MEDS: Carvedilol 25 MG Tablet PO (08:43)
[2022-08-25] MEDS: Gabapentin 300 MG Capsule PO (08:43)
[2022-08-25] MEDS: Glimepiride 2 MG Tablet PO (08:43)
[2022-08-25] MEDS: Potassium Chloride Oral Tablet 20 MEQ PO (08:43)
[2022-08-25] MEDS: Empagliflozin 10 MG Tablet PO (08:43)
[2022-08-25] MEDS: Multivitamins,Ther W-Minerals Tablet 1 TABLET PO (08:43)
[2022-08-25] MEDS: Acetaminophen 500 MG Tablet 1000 MG PO (08:46)
[2022-08-25 10:38] VITALS: BP 141/78; PULSE 61; RESP 18; TEMP 36.8; O2SAT 97
[2022-08-25 12:14] LABS: Bedside Glucose 134 mg/dL (74-106)
--- NOTE | 2022-08-26 10:31 | MDS.RN ---
Information for the mds was obtained from review of the clinical record, interview of resident, staff, and direct observation of resident's care.
== END 2022-08-25 10:15 | disposition home health service (06) | DRG 202 ==
PROVIDERS: Admitting Provider Family Medicine Geriatric Medicine; PCP Family Medicine; Visit Provider Family Medicine Geriatric Medicine
DX: J20.1 Acute bronchitis due to Hemophilus influenzae (principal); J96.01 Acute respiratory failure with hypoxia; J69.0 Pneumonitis due to inhalation of food and vomit; I50.21 Acute systolic (congestive) heart failure; I44.2 Atrioventricular block, complete; N17.9 Acute kidney failure, unspecified; E11.42 Type 2 diabetes mellitus with diabetic polyneuropathy; I11.0 Hypertensive heart disease with heart failure; E11.51 Type 2 diabetes mellitus with diabetic peripheral angiopathy without gangrene; I25.10 Atherosclerotic heart disease of native coronary artery without angina pectoris; E78.5 Hyperlipidemia, unspecified; F17.290 Nicotine dependence, other tobacco product, uncomplicated; K21.9 Gastro-esophageal reflux disease without esophagitis; Z86.73 Personal history of transient ischemic attack (TIA), and cerebral infarction without residual deficits; Z79.82 Long term (current) use of aspirin; Z79.84 Long term (current) use of oral hypoglycemic drugs; Z79.02 Long term (current) use of antithrombotics/antiplatelets; Z79.899 Other long term (current) drug therapy
CPT/HCPCS: 36415; 71046; 80048; 82962; 83880; 85025; 87426; 87811; 94640; 97110; 97116; 97162; 97165; 97530; 97535; 97802; 99406; J7050; A4216; J1940

== ENCOUNTER → 2022-08-19 | Outpatient (CLI) | payer MEDICARE, SELFPAY ==
--- NOTE | 2022-08-19 10:18 | VDLE_ITS ---
Reason For Study: LEG SWELLING RIGHT LEFT CFV is compressible, spontaneous, phasic, GSV is normal. competent and demonstrates normal CFV is compressible, spontaneous, phasic, augmentation. competent, and demonstrates normal Procedure augmentation. This is a venous duplex using B-mode, color FV is compressible, spontaneous, phasic, flow and spectral Doppler. competent and demonstrates normal Exam performed in department. augmentation. The exam was diagnostic. POP V is compressible, spontaneous and A preliminary report was called and/or faxed phasic. to TCU Nurse. T/P Trunk is compressible. PTV is compressible. LT PerV is compressible. LT Gastroc V is dilated, hypoechoic and non- compressible. No flow is demonstrated in color or pulsed wave doppler. VL/Venous Duplex US, Unilateral Interpretation Summary Acute deep vein thrombosis is noted in the left gastrocnemius vein. Ordering Physician: Nirav Kinsey Chi Referring Physician: Nirav Kinsey Chi Performed By: Jhoan Rock RVT
== END | disposition home or self-care (01) ==
LOC: CVS 10:17
PROVIDERS: PCP Family Medicine; Referring Provider Family Medicine Geriatric Medicine; Visit Provider Family Medicine Geriatric Medicine
DX: R22.42 Localized swelling, mass and lump, left lower limb (principal)
CPT/HCPCS: 93971